=== PATIENT | female | born 1930 | race Caucasian/White ===

== ENCOUNTER 2019-10-22 11:57 | Emergency (ER) | payer OTHER ==
[~2019-10-22] VITALS: Ht 152.4 cm; Wt 59.0 kg
[2019-10-22] MEDS ORDERED: FERR-82 PO (12:16)
[2019-10-22] MEDS ORDERED: WARF1 PO (12:16)
[2019-10-22] MEDS ORDERED: OMEP20 PO (12:16)
[2019-10-22] MEDS ORDERED: FURO40 PO (12:16)
[2019-10-22] MEDS ORDERED: DILT180C47 PO (12:16)
[2019-10-22] MEDS ORDERED: METF-960 PO (12:16)
[2019-10-22] MEDS ORDERED: KDUR20 PO (12:16)
[2019-10-22] MEDS ORDERED: LEVO88TA4 PO (12:16)
[2019-10-22] MEDS ORDERED: GLIP5 PO (12:16)
[2019-10-22] MEDS ORDERED: ATOR40TA28 PO (12:16)
[2019-10-22 12:46] LABS: BASOPHILS % (AUTO) 0.5 % (0.0-2.0); EOSINOPHILS % (AUTO) 0.8 % (1.0-6.0); HEMATOCRIT 38.4 % (36-46); HEMOGLOBIN 12.6 g/dL (12.0-16.0); LYMPHOCYTES % (AUTO) 9.8 % (22.0-44.0); MEAN CORPUSCULAR HGB CONC 32.9 G/dL (31.0-37.0); MEAN CORPUSCULAR VOLUME 88 fL (80-100); MONOCYTES # (AUTO) 0.7 K/uL (0.1-1.0); NEUTROPHILS # (AUTO) 8.1 K/uL (1.8-7.7); NEUTROPHILS % (AUTO) 81.9 % (40.0-70.0); PLATELET COUNT (AUTO) 190 K/uL (150-450); RED BLOOD CELL COUNT(AUTO) 4.36 MIL/uL (4.00-5.20); RED CELL DISTRIBUTION WIDTH 15.9 % (11.5-14.5)
[2019-10-22] MEDS ORDERED: FUROSEMIDE 40 MG/4 ML VIAL IVP ONE (13:00)
[2019-10-22 13:24] LABS: ALBUMIN 2.9 g/dL (3.4-5.0); BILIRUBIN,TOTAL 0.7 mg/dL (0.1-1.0); CALCIUM, TOTAL 9.2 mg/dL (8.8-10.5); CREATININE 1.27 mg/dL (0.60-1.30); POTASSIUM 3.9 mmol/L (3.5-5.1); TOTAL PROTEIN, SERUM 7.6 g/dL (6.4-8.2)
[2019-10-22] MEDS ORDERED: ASPIRIN 325 MG TABLET PO ONE (13:30)
[2019-10-22 13:54] LABS: INR 2.7 (0.9-1.1); PROTHROMBIN TIME 27.3 SEC (9.4-11.6)
[2019-10-22 14:25] LABS: ABG A-A DIFF O2 200.4 mmHg (10-20.0); ABG BASE EXCESS -1.7 mmol/L (-2.0-3.0); ABG HCO3 23.3 mmol/L (22.0-26.0); ABG METHEMOGLOBIN 0.3 % (0.0-1.5); ABG OXYGEN SATURATION 95.1 % (95.0-98.0); ABG OXYHEMOGLOBIN 93.9 % (94.0-100.0); ABG PCO2 38 mmHg (35-45); ABG PH 7.405 (7.35-7.450); ABG TOTAL HEMOGLOBIN 12.1 G/dL (12.0-18.0); PO2, ARTERIAL BG 77.7 mmHg (71.0-79.0); SOURCE, BLOOD GAS ARTERIAL; TEMPERATURE, FAHRENHEIT, BG 98.6 FAHREN (96.0-98.6)
[2019-10-22 16:34] VITALS: BP 113/64
[2019-10-22 17:24] LABS: SITE, BLOOD GAS LFT RADIAL
[2019-10-22 17:25] LABS: O2 DEVICE,BLOOD GAS BIPAP (ROOM AIR)
[2019-10-22 17:26] LABS: SPONTANEOUS VT, BG 352 ml
== END 2019-10-22 17:00 | disposition short-term general hospital (02) ==
LOC: EMS 12:03
DX: I11.0 Hypertensive heart disease with heart failure (principal); I50.9 Heart failure, unspecified; I44.7 Left bundle-branch block, unspecified; E11.65 Type 2 diabetes mellitus with hyperglycemia; R79.89 Other specified abnormal findings of blood chemistry; K21.9 Gastro-esophageal reflux disease without esophagitis; E78.00 Pure hypercholesterolemia, unspecified; M79.89 Other specified soft tissue disorders
CPT/HCPCS: 36415; 71045; 80053; 82550; 82805; 83880; 84484; 85025; 85610; 93005; 94660; 96374; 99291; J1940